=== PATIENT | female | born 1970 | race Caucasian/White ===

== ENCOUNTER 2017-02-01 05:19 | Day surgery (SDC) ==
[2017-01-25 11:22] LABS: HEMATOCRIT 42.1 % (37.0-47.0); MCH 28.9 PG (27-31); MCHC 33.3 g/dL (33-37); MCV 86.8 FL (81-99); MPV 10.9 FL (7.4-10.4); RBC 4.85 XMIL (4.2-5.4)
[2017-01-25 11:54] LABS: DIRECT BILIRUBIN < 0.10 mg/dL (0.00-0.20)
[2017-01-25 12:00] LABS: AGAP 12; ALKALINE PHOSPHATASE 64 U/L (32-104); BUN 11 mg/dL (8-22); CALCIUM 9.8 mg/dL (8.8-10.2); CHLORIDE 100 mmol/L (98-107); COSMO 279; GOT 14 U/L (10-30); GPT 20 U/L (10-36); LIPASE 39 U/L (13-60); POTASSIUM 3.9 mmol/L (3.5-5.1); SODIUM 140 mmol/L (136-145); TCO2 28 mmol/L (25-35); TOTAL BILIRUBIN 0.16 mg/dL (0.20-1.00); TOTAL PROTEIN 6.7 g/dL (6.3-8.3)
--- NOTE | 2017-01-25 12:30 | EKG Report ---
Test Performed on : 01/25/2017 11:12:00 AM Test Reason : PAT Blood Pressure : / mmHG Vent. Rate : 082 BPM Atrial Rate : 082 BPM P-R Int : 134 ms QRS Dur : 104 ms QT Int : 376 ms P-R-T Axes : 023 -18 -05 degrees QTc Int : 439 ms Normal sinus rhythm. Nonspecific ST abnormality Abnormal ECG No previous ECGs available Confirmed by Federico POWERS, Jadiel Mccurdy ([id number]) on 01/25/2017 4:27:37 PM
[2017-02-01] MEDS ORDERED: LR 1,000 ML ONE ×2 (05:32→06:14)
[2017-02-01] MEDS ORDERED: REGLAN ONE (05:32)
[2017-02-01] MEDS ORDERED: KEFZOL 2 GM/D5W 50 ML ONE (05:32)
[2017-02-01] MEDS ORDERED: PEPCID ONE (05:32)
[2017-02-01] MEDS ORDERED: MARCAINE 0.25% PF/EPI 1:200,000 ONE (06:14)
[2017-02-01] MEDS ORDERED: SODIUM CHLORIDE 0.9% ONE (06:14)
[2017-02-01] MEDS ORDERED: DIPRIVAN 1% ONE (08:34)
[2017-02-01] MEDS ORDERED: FENTANYL ONE (08:34)
[2017-02-01] MEDS: DILAUDID ONE ×2 (08:51→08:56)
[2017-02-01] MEDS ORDERED: LR 500 ML ONE (08:53)
[2017-02-01] MEDS ORDERED: NEOSTIGMINE ONE (09:02)
[2017-02-01] MEDS ORDERED: ZOFRAN ONE (09:02)
[2017-02-01] MEDS ORDERED: XYLOCAINE 2% JELLY ONE (09:03)
[2017-02-01] MEDS ORDERED: EPHEDRINE ONE (09:03)
[2017-02-01] MEDS ORDERED: DECADRON ONE (09:03)
[2017-02-01] MEDS ORDERED: ROBINUL ONE (09:03)
[2017-02-01] MEDS ORDERED: QUELICIN (DOSE) ONE (09:03)
[2017-02-01] MEDS ORDERED: NORCURON ONE (09:03)
[2017-02-01] MEDS ORDERED: TORADOL ONE (09:03)
[2017-02-01] MEDS ORDERED: NORCO-7.5 ONE (09:22)
[2017-02-01] MEDS ORDERED: THYROID PORK 90 MG PO SCH (09:27)
[2017-02-01] MEDS ORDERED: PRINIVIL PO SCH (09:27)
[2017-02-01] MEDS ORDERED: PROZAC PO SCH (09:27)
[2017-02-01] MEDS ORDERED: GLUCOPHAGE PO SCH (09:27)
[2017-02-01] MEDS ORDERED: DYAZIDE PO SCH (09:27)
[2017-02-01] MEDS ORDERED: NORCO-7.5 PO PRN (09:27)
[2017-02-01] MEDS ORDERED: PROTONIX PO SCH (09:27)
[2017-02-01] MEDS ORDERED: ZOFRAN IV PRN (09:27)
[2017-02-01 09:52] VITALS: BP 121/69
--- NOTE | 2017-02-01 11:18 | OPERATIVE NOTE ---
PROCEDURE DATE: 02/01/2017 PREOPERATIVE DIAGNOSIS: Symptomatic cholelithiasis. POSTOPERATIVE DIAGNOSIS: Symptomatic cholelithiasis. PROCEDURE: Laparoscopic cholecystectomy. SURGEON: Bran Taylor MD ESTIMATED BLOOD LOSS: 10 mL. SPECIMENS: Gallbladder. ANESTHESIA: General. COMPLICATIONS: None. INDICATIONS: This is a 46-year-old female with colicky right upper quadrant abdominal pain for some time. Ultrasound showed stones, cholecystectomy was indicated. LFTs were normal. OPERATIVE FINDINGS: There was a chronically inflamed gallbladder, but otherwise normal anatomy. OPERATIVE NOTE: Risks, benefits, alternatives were discussed with the patient, she consented to the procedure. She was seen in the preoperative area and surgery to be performed confirmed. She was taken to the operating room and placed in supine position. General anesthesia was induced without complication. All bony prominences were padded and placed in neutral position. Preincisional antibiotics were administered. Abdomen was prepped with chlorhexidine solution, draped in usual fashion. After time-out performed between nursing, surgical, and anesthesia staff all agreed on procedure to be performed. Periumbilical block was performed with local anesthetic. Curvilinear infraumbilical incision was made at the site of previous scar bluntly dissection was carried down to the level of the fascia. The fascia was elevated with Dung clamp and a midline incision was made. Abdomen was entered in an open controlled fashion and a 12 mm Master trocar was placed. Insufflated the abdomen to 15 mmHg, tolerated this well. We inspected the abdomen, there was no evidence of injury. We placed three 5 mm trocars after infiltration of the peritoneum; 1 in the epigastrium, 1 the midclavicular line off the costal margin, 1 more laterally. We grasped the gallbladder, elevated this cephalad. We stripped the peritoneal and omental adhesions to the gallbladder down bluntly and using electrocautery, exposing the infundibulum. We grasped infundibulum and retracted down to the patient's right and dissected out a cystic artery that coursed through the triangle here and also created the window around the cystic duct infundibular junction exposing the critical view of safety. There was a large cystic artery that coursed through this directly in the gallbladder, we doubly clipped this and divided it. There was a smaller more venous branch posterior that we doubly clipped and divided as well. Side the this Gonzalez expose the critical view with liver visualized through the triangle made and no evidence of other tubular structures in the gallbladder. Given the normal anatomy, normal LFTs the gallbladder was somewhat intrahepatic and a cholangiogram would have been difficult and felt not indicated. So we triply clipped the cystic duct divided it, then removed the gallbladder from the gallbladder fossa. It was quite adherent to the gallbladder fossa. There was a small opening made with some slight spillage of bile that was suctioned free and the hole was occluded. There was no spillage of stones. After removal of gallbladder, placed it in an EndoCatch bag. Copiously irrigated the abdomen until clear. Confirmed hemostasis, but no bile leaking from the cystic duct. Tolerated procedure well, there were no identified complications. We removed the trocars under direct visualization, noted to be hemostatic. Desufflated the abdomen, brought the gallbladder out through the umbilical incision. We closed the fascia with 0 Vicryl sutures in interrupted fashion. Skin was closed with 4-0 Monocryl. She tolerated the procedure well with no identified complications. [place], transferred to PACU in good condition. I spoke with the family.
== END 2017-02-01 10:15 | disposition home or self-care (01) ==
LOC: OPS 05:19
PROVIDERS: ATTEND Surgery
DX: K80.10 Calculus of gallbladder with chronic cholecystitis without obstruction (principal); F17.210 Nicotine dependence, cigarettes, uncomplicated; E11.9 Type 2 diabetes mellitus without complications; K21.9 Gastro-esophageal reflux disease without esophagitis
CPT/HCPCS: 80048; 80076; 83690; 85027; 88304; 93005; 93010; C1751; J0330; J0690; J1100; J1170; J1885; J2405; J3010; J7120; Q9966; J2710